=== PATIENT | male | born 1945 | race Caucasian/White ===

== ENCOUNTER 2018-02-10 12:49 | Inpatient (IN) | payer OTHER ==
[~2018-02-10] VITALS: Ht 190.5 cm; Wt 122.0 kg
--- NOTE | ~2018-02-10 | PATH ---
[facility] [place] [address] PATHOLOGY RPT PROCEDURE Name: CLIFTON GRAY Room #: 421-P DIS IN M.R.#: [id number] Admission: 02/10/18 Date of : 45 Discharge: 02/13/18 Report #: [id number] Path Case #: [id number] LCA Accession Number: [id number] . 01 Material submitted: . BX GASTRITIS . 01 Clinical history: . Pre-OP DX: GI bleed Post-OP DX: Gastritis . 02 Diagnosis: Gastric biopsy, "biopsy gastritis": - Mild chronic reactive gastropathy with mild chronic inflammation. - There is no evidence of atypia or malignancy. - The immunoperoxidase stain for Helicobacter pylori is negative. (SHA:; 02/13/18) QRQ/02/13/2018 . 02 Electronically signed: . Cirilo Meyers MD, Pathologist NPI- [id number] . 01 Gross description: . Received in formalin labeled "Surinder, Clifton, BX gastritis," are 4 segments of almonte soft tissue measuring 0.8 x 0.7 x 0.2 cm in aggregate dimensions and ranging from 0.3 to 0.4 cm in maximum dimension. The specimen is submitted entirely in cassette A1. (TSD; 02/11/2018) /TOB . 02 Pathologist provided ICD-10: K31.9, K29.50 . 02 CPT . 389970, C06768 Performed at: [address], [place] [id number] MD Ed Colvin MD Phone: [phone] Performed at: [address] [id number] MD Radha Aleman MD Phone: [phone]
--- NOTE | ~2018-02-10 | D ---
[facility] [place] [address] [place] [address] DISCHARGE SUMMARY Name: OVIDIO GRAY Room #: 421-P [facility] IN ..#: [id number] Admission: 02/10/18 Attend Phys: Jayesh Nuno Discharge: 02/13/18 Date of : 45 Report #: [id number] THIS REPORT FOR: //name// CC: Ashish Pascual FINAL DIAGNOSES: 1. Upper gastrointestinal bleed. 2. Anemia due to gastrointestinal loss. 3. Colonic polyp. 4. Internal hemorrhoids. 5. Gastritis. 6. Diabetes type 2. 7. Hypertension. PROCEDURES: 1. EGD. 2. Colonoscopy. 3. Two-unit blood transfusion. HOSPITAL COURSE: The patient was admitted with a syncopal episode, likely related to a GI bleed. He was hemodynamically stable during his admission, lab work was followed. His hemoglobin decreased from 9.2-7.2 and he received 2 units of blood. EGD was performed. This showed some white scarred or old based nonbleeding gastric ulcers 2 areas and gastritis. A colonoscopy was performed again with no bleeding. A colon polyp was biopsied, internal hemorrhoids that were nonbleeding. Dr. Cooper recommended an outpatient capsule study of the small intestine. He had no other interval complication. PHYSICAL EXAMINATION: GENERAL: On the day of discharge, he was awake and alert with stable vital signs and no further presyncope type symptoms. LUNGS: Clear. HEART: Regular. ABDOMEN: Soft, normoactive bowel sounds. EXTREMITIES: No edema. DISPOSITION: He will be discharged to home with diabetic diet, activity as tolerated, resume all medications with exception of potassium and Maxzide. Avoid aspirin and NSAIDs. He will have Protonix 40 mg twice a day for a month. Follow up with Dr. Pascual and Dr. Cooper in 1 week. <ELECTRONICALLY SIGNED> By: Jarrell Fry MD 02/14/18 [phone] Jarrell Fry MD /nt
--- NOTE | ~2018-02-10 | P ---
[facility] [place] [address] PROCEDURE REPORT Name: OVIDIO GRAY Room #: 421-P [facility] IN ..#: [id number] Admission: 02/10/18 Attend Phys: Jayesh Nuno Discharge: 02/13/18 Date of : 45 Report #: [id number] THIS REPORT FOR: //name// CC: Gregory Pascual DATE OF SERVICE: 02/12/2018 PROCEDURE PERFORMED: Colonoscopy with polypectomy. HISTORY OF PRESENT ILLNESS: The patient is a 72-year-old male with a near syncopal episode recently, had a drop in his hemoglobin from 9.1 on admission down to 7.6 today. EGD was performed yesterday as the patient had been having dark stools, small 2 antral ulcers were noted. No evidence of bleeding, otherwise normal. Plan is for colonoscopy. The patient has never had a previous colonoscopy. DESCRIPTION OF PROCEDURE: The risks and benefits of the procedure were explained to the patient, those risks including but not limited to bleeding, perforation, the risk of sedation. He understood these risks and gave informed consent. Sedation was given using propofol per Anesthesia. Next, a digital rectal exam was performed in which a firmness was noted at the 6 o'clock position. Close examination shows evidence of a chronic anal fissure, no evidence of bleeding. Next, using a standard Olympus colonoscope, the scope was placed in the patient's anus and advanced under direct vision to the cecum. The overall prep was good in most areas. Multiple washings and aspirations were performed. There was old dark appearing stools. No evidence of bright red blood throughout the colon. The cecum and ileocecal valve were normal in appearance. In the proximal ascending colon, an 8 mm sessile polyp was noted. This was removed by snare cautery, otherwise normal. The transverse and descending colon were normal. Scattered diverticula were noted in the sigmoid colon, no evidence of inflammation or active bleeding. The rectal mucosa was normal. On retroflexion, small nonbleeding internal hemorrhoids were noted. Close examination of the anal canal showed a chronic appearing anal fissure at the 6 o'clock position. No bleeding. The scope was then withdrawn and the procedure terminated. The patient tolerated the procedure well. IMPRESSION: 1. Colonic polyp. 2. Sigmoid diverticulosis. 3. Internal hemorrhoids. 4. Anal fissure at 6 o'clock position. RECOMMENDATIONS: Etiology of the patient's anemia is unclear. There was no active bleeding on colonoscopy today. There was evidence of some old dark stool. His hemoglobin has drifted down to 7.6. We will plan on repeating [address] [address] PROCEDURE REPORT Name: OVIDIO GRAY Room #: 421-P [facility] IN M.R.#: [id number] Admission: 02/10/18 Attend Phys: Jayesh Nuno Discharge: 02/13/18 Date of : 45 Report #: [id number] hemoglobin this afternoon, may need to consider transfusion. May also need to consider an M2 capsule in the near future as an outpatient. Thank you for allowing me to participate in his care. <ELECTRONICALLY SIGNED> By: Demario Cooper MD 02/14/18 0830 1221 1506 Demario Cooper MD /nt
--- NOTE | ~2018-02-10 | EKG ---
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 : 1945 Requested By: Yaritza Dewitt Order Number: [id number] MD: Tanner Lomeli Measurements Intervals [place] Rate: 108 P: -25 WV: 174 QRS: -11 QRSD: 148 T: -28 QT: 375 QTc: 503 Interpretive Statements Sinus rhythm with frequent atrial premature complexes Right bundle branch block Leftward axis No previous ECGs available for comparison Electronically Signed On 02-10-2018 17:15:02 CDT by Tanner Lomeli [email or web address] <ELECTRONICALLY SIGNED> By: Tanner Lomeli MD, [facility] 02/10/18 1715 1253 1253 Tanner Lomeli MD, [facility] /EPI
--- NOTE | ~2018-02-10 | H ---
[facility] [place] [address] HISTORY AND PHYSICAL Name: OVIDIO GRAY Room #: 421-P [facility] IN .R.#: [id number] Admission: 02/10/18 Attend Phys: Jayesh Nuno Discharge: Date of : 45 Report #: [id number] THIS REPORT FOR: //name// CC: Ashish Pascual DATE OF SERVICE: 02/10/2018 CHIEF COMPLAINT: Dark stools and syncope. HISTORY OF PRESENT ILLNESS: The patient is a 72-year-old gentleman, sent to the Emergency Room after a syncopal episode earlier this morning. He said in recent days, he has had some dark tarry stools for about 3 days. This morning, he was at his dentist's office and then began to feel lightheaded as he left. He was driving and running some errands and stopping by our office to meet a friend when he had a passing out spell. He denies any nausea, vomiting, abdominal pain or bright red blood. He denies any chronic use of aspirin or nonsteroidals. PAST MEDICAL HISTORY: Hypertension, diabetes type 2, has a history of alcohol use in the past. He says he stopped in the 1980s. PAST SURGICAL HISTORY: Hydrocele, bladder tumor treatment several times, some orthopedic fractures. FAMILY HISTORY: Noncontributory. SOCIAL HISTORY: No chronic alcohol or tobacco use currently. ALLERGIES: None. MEDICATIONS: Metformin, potassium, allopurinol, Amaryl, Zestril, Norvasc, pravastatin, Levemir, Maxzide. REVIEW OF SYSTEMS: He denies headache, chest pain, shortness of breath, abdominal pain, nausea, vomiting, diarrhea, constipation, dysuria, syncope. OBJECTIVE: VITAL SIGNS: Temperature 36.9, pulse 103, respirations 18, blood pressure 129/76, O2 sat 97% on room air. GENERAL: He is awake and alert, in no distress. LUNGS: Clear. HEART: Regular. ABDOMEN: Soft, obese, normoactive bowel sounds. No rebound or guarding. EXTREMITIES: No cyanosis, clubbing or edema. NEUROLOGIC: Motor strength 5/5 throughout. LABORATORY DATA: Hemoglobin is 8.4, down from 9.1 on admission. MCV was [address] [address] HISTORY AND PHYSICAL Name: OVIDIO GRAY Room #: 421-[facility] IN [facility]#: [id number] Admission: 02/10/18 Attend Phys: Jayesh Nuno Discharge: Date of : 45 Report #: [id number] normal. Chemistry is unremarkable. Blood sugars are in the 200s. ASSESSMENT: 1. Syncopal episode, suspected due to gastrointestinal blood loss. 2. Gastrointestinal bleed, possible upper source. 3. Diabetes type 2. 4. Hypertension. PLAN: GI Service has assessed him today and plans on EGD. We will await those results. In the meantime, continue his usual medications from home. <ELECTRONICALLY SIGNED> By: Jarrell Fry MD 02/11/18 1313 1002 1026 Jarrell Fry MD /nt
--- NOTE | ~2018-02-10 | PATH ---
[facility] [place] [address] PATHOLOGY RPT PROCEDURE Name: CLIFTON GRAY Chanell Room #: 421-P [facility] IN M.R.#: [id number] Admission: 02/10/18 Date of : 45 Discharge: 02/13/18 Report #: [id number] Path Case #: [id number] LCA Accession Number: [id number] . 01 Material submitted: . POLYP ASCENDING COLON . 01 Clinical history: . GI bleed Colon polyp, diverticulosis . 02 Diagnosis: Colonic mucosa, "polyp ascending colon": - Fragments of tubular adenoma. - There is no evidence of high-grade dysplasia or malignancy. (SHA:siria; 02/14/2018) QMS/02/14/2018 . 02 Electronically signed: . Cirilo Meyers MD, Pathologist NPI- [id number] . 01 Gross description: . The specimen is received in formalin, labeled "Surinder, Clifton, polyp ascending colon" and consists of a polypoid segment of almonte soft tissue measuring 0.8 x 0.5 x 0.3 cm. It is inked and entirely submitted in A1. (SDY; 02/13/2018) SYU/SYU . 02 Pathologist provided ICD-10: D12.2 . 02 CPT . 502637 Performed at: [address], [place], [place] [id number] MD Ed Colvin MD Phone: [phone] Performed at: [address] [id number] MD Radha Aleman MD Phone: [phone]
--- NOTE | ~2018-02-10 | P ---
[facility] [place] [address] PROCEDURE REPORT Name: OVIDIO GRAY Room #: 421-P [facility] IN ..#: [id number] Admission: 02/10/18 Attend Phys: Jayesh Nuno Discharge: 02/13/18 Date of : 45 Report #: [id number] THIS REPORT FOR: //name// CC: Gregory Pascual DATE OF SERVICE: 02/11/2018 PROCEDURE PERFORMED: Upper endoscopy with biopsies. HISTORY OF PRESENT ILLNESS: The patient is a 72-year-old male with recent near syncopal episode. He does report some intermittent abdominal pain, was noted to have a hemoglobin of 9.1 on admission. No previous history of endoscopy. He had been having dark stools. He was not taking any NSAIDs. The patient's hemoglobin today is 8.4. Plan is for EGD. PPI therapy has been started. DESCRIPTION OF PROCEDURE: The risks and benefits of the procedure were explained to the patient, those risks including but not limited to bleeding, perforation, the risk of sedation. He understood these risks and gave informed consent. Sedation was given using propofol per anesthesia. Next, using a standard Olympus upper endoscope, the scope was placed in the patient's mouth and advanced under direct vision through the esophagus, stomach and into the second portion of the duodenum. The larynx was normal in appearance. The esophagus was normal throughout. The GE junction was normal. Overall, the gastric mucosa was normal in the fundus and body. In the gastric antrum, mild gastritis was noted. Two small 3-4 mm clean white based ulcers were near the angularis. No evidence of bleeding, no visible vessel. The pylorus was normal and patent. The duodenal bulb, first and second portion were normal. No evidence of blood throughout the exam today. Gastric biopsies were obtained to rule out H. pylori. The scope was then withdrawn and the procedure terminated. The patient tolerated the procedure well. IMPRESSION: 1. Gastritis with 2 small ulcerations in the gastric antrum. No evidence of bleeding. 2. Otherwise, normal upper endoscopy. RECOMMENDATIONS: 1. Await biopsy results. 2. Continue PPI therapy. 3. Continue to monitor hemoglobin. 4. I will discuss options with the patient. He needs a colonoscopy, could potentially proceed with prep and colonoscopy tomorrow versus doing this in the near future as an outpatient. We will discuss more with the patient today. [address] [address] PROCEDURE REPORT Name: OVIDIO GRAY Room #: 421-P [facility] IN .R.#: [id number] Admission: 02/10/18 Attend Phys: Jayesh Nuno Discharge: 02/13/18 Date of : 45 Report #: [id number] Thank you for allowing me to participate in his care. <ELECTRONICALLY SIGNED> By: Demario Cooper MD 02/14/18 0830 1458 10 Demario Cooper MD /marilee
[~2018-02-10 12:49] MED LIST: ALLOPURINOL 30300 M2 PO; AMARYL4 MG PO; AMLODIPINE BESY10 MG PO; BACTRIM DS TAB1 EACH PO; BACTROBAN CREAM30 G1 TOP; GLUCOPHAGE1000 MG PO; KETOCONAZOLE15 GM TOP; LANTUS SUBQ; LISINOPRIL40 MG PO; POTASSIUM20 PO; PRAVASTATIN SOD20 MG PO; REFRESH P.M. O3.5 G2 OPHTHALMIC; TRIAMTERENE-HC1 EAC1 PO
[2018-02-10 12:51] VITALS: BP 121/82
[2018-02-10 13:22] LABS: ABSOLUTE NEUTROPHILS 10.4 thou/uL (1.4-8.2); BASOPHILS 0.5 % (0.0-2.0); EOSINOPHILS 0.7 % (0.0-3.0); HEMATOCRIT 26.3 % (42.0-52.0); HEMOGLOBIN 9.1 gm/dL (14.0-18.0); LYMPHOCYTES 12.8 % (24.0-44.0); MCH 29.9 pg (26.0-34.0); MCHC 34.8 g/dL (28.0-37.0); MONOCYTES 4.4 % (1.0-8.0); PLATELET COUNT 214 thou/uL (150-400); POLYS 81.6 % (36.0-66.0); RBC 3.05 mil/uL (4.50-6.00); WBC 12.8 thou/uL (4.0-11.0)
[2018-02-10 13:33] LABS: ANION GAP 9 mmol/L (7-16); BUN 29 mg/dL (7-18); CALCIUM 8.8 mg/dL (8.5-10.1); CHLORIDE 105 mmol/L (98-107); CO2 22 mmol/L (21-32); CREATININE 1.2 mg/dL (0.7-1.3); GLUCOSE 264 mg/dL (74-106); SODIUM 136 mmol/L (136-145)
[2018-02-10 13:37] LABS: APTT 22.2 Seconds (24.5-32.8); PROTIME 10.6 Seconds (9.3-11.4)
[2018-02-10 13:41] LABS: TROPONIN-I <0.06 ng/mL (<0.06)
[2018-02-10 14:52] VITALS: BP 124/82
[2018-02-10] MEDS ORDERED: MAXZIDE-25 MG1 EACH PO (15:05)
[2018-02-10] MEDS ORDERED: LEVEMIR FL100 UNIT/2 SUBQ (15:05)
[2018-02-10 15:59] VITALS: BP 124/82
[2018-02-10 16:10] VITALS: BP 139/89
[2018-02-10 20:45] VITALS: BP 139/82
[2018-02-11 04:00] VITALS: BP 129/76
[2018-02-11 05:45] LABS: HEMATOCRIT 22.9 % (42.0-52.0); HEMOGLOBIN 8.4 gm/dL (14.0-18.0); MCH 31.1 pg (26.0-34.0); MCHC 36.8 g/dL (28.0-37.0); MCV 84.5 fL (80.0-100.0); RBC 2.71 mil/uL (4.50-6.00); RDW 15.6 % (10.5-14.5); WBC 9.1 thou/uL (4.0-11.0)
[2018-02-11 06:04] LABS: ALBUMIN 2.9 g/dL (3.4-5.0); DIRECT BILIRUBIN 0.1 mg/dL (<0.1-0.3); TOTAL BILIRUBIN 0.4 mg/dL (<0.1-1.0); TOTAL PROTEIN 5.7 g/dL (6.4-8.2)
[2018-02-11 15:28] VITALS: BP 151/74
[2018-02-11 20:00] VITALS: BP 147/82
[2018-02-12 03:41] VITALS: BP 149/76
[2018-02-12 06:02] LABS: HEMATOCRIT 21.2 % (42.0-52.0); HEMOGLOBIN 7.6 gm/dL (14.0-18.0)
[2018-02-12 06:06] LABS: CALCIUM 8.3 mg/dL (8.5-10.1); CREATININE 1.1 mg/dL (0.7-1.3); POTASSIUM 3.6 mmol/L (3.5-5.1)
[2018-02-12 08:00] VITALS: BP 138/73
[2018-02-12 15:29] VITALS: BP 136/87; BP 142/94
[2018-02-12 16:00] VITALS: BP 139/83
[2018-02-12 19:25] VITALS: BP 142/94
[2018-02-12 19:59] VITALS: BP 140/89; BP 142/88; BP 144/90
[2018-02-13 01:43] LABS: HEMATOCRIT 22.6 % (42.0-52.0); HEMOGLOBIN 8.2 gm/dL (14.0-18.0); MCH 30.5 pg (26.0-34.0); MCHC 36.1 g/dL (28.0-37.0); MCV 84.4 fL (80.0-100.0); RBC 2.68 mil/uL (4.50-6.00); WBC 9.4 thou/uL (4.0-11.0)
[2018-02-13 01:53] LABS: CALCIUM 8.1 mg/dL (8.5-10.1); POTASSIUM 3.8 mmol/L (3.5-5.1)
[2018-02-13 02:44] VITALS: BP 138/98
[2018-02-13] MEDS ORDERED: PROTONIX40 M1 PO (08:40)
[2018-02-13 12:25] VITALS: BP 138/98
== END 2018-02-13 16:00 | disposition home or self-care (01) | DRG 378 ==
LOC: ER 12:49 → 4E 14:18 → EROBS 14:18 → 4E 16:24 → ENTRNSPT 02-13 15:47 → EDTRNSPTSTS 02-13 15:49 → 4E 02-13 16:00
PROVIDERS: Emergency Medicine; Internal Medicine Geriatric Medicine; Nurse Practitioner
PROC: 0DB68ZX Excision of Stomach, Via Natural or Artificial Opening Endoscopic, Diagnostic (ICD-10-PCS; principal; 2018-02-11)
PROC: 0DBK8ZZ Excision of Ascending Colon, Via Natural or Artificial Opening Endoscopic (ICD-10-PCS; 2018-02-12)
PROC: 30233N1 Transfusion of Nonautologous Red Blood Cells into Peripheral Vein, Percutaneous Approach (ICD-10-PCS; 2018-02-12)
DX: K57.31 Diverticulosis of large intestine without perforation or abscess with bleeding (principal); E44.1 Mild protein-calorie malnutrition; I10 Essential (primary) hypertension; E11.9 Type 2 diabetes mellitus without complications; M10.9 Gout, unspecified; D64.9 Anemia, unspecified; K63.5 Polyp of colon; K64.8 Other hemorrhoids; K29.71 Gastritis, unspecified, with bleeding; E78.5 Hyperlipidemia, unspecified; E66.9 Obesity, unspecified; K25.9 Gastric ulcer, unspecified as acute or chronic, without hemorrhage or perforation; Z79.899 Other long term (current) drug therapy; Z87.891 Personal history of nicotine dependence; Z68.33 Body mass index [BMI] 33.0-33.9, adult
CPT/HCPCS: 10183; 62110; 62900; 70005

== ENCOUNTER 2020-05-01 07:56 | Inpatient (IN) | payer OTHER ==
[~2020-05-01] VITALS: Ht 190.5 cm; Wt 120.2 kg
[~2020-05-01 07:56] MED LIST changes: +LEVEMIR FL100 UNIT/2 SUBQ; +MAXZIDE-25 MG1 EACH PO; +PROTONIX40 M1 PO
[2020-05-01 08:02] VITALS: BP 169/94
[2020-05-01 09:13] LABS: ABSOLUTE NEUTROPHILS 14.7 thou/uL (1.4-8.2); BASOPHILS 0.6 % (0.0-2.0); EOSINOPHILS 0.2 % (0.0-3.0); HEMATOCRIT 44.1 % (42.0-52.0); HEMOGLOBIN 14.9 gm/dL (14.0-18.0); LYMPHOCYTES 8.9 % (24.0-44.0); MCHC 33.8 g/dL (28.0-37.0); MCV 85.9 fL (80.0-100.0); MONOCYTES 7.7 % (1.0-8.0); PLATELET COUNT 206 thou/uL (150-400); POLYS 82.6 % (36.0-66.0); RBC 5.14 mil/uL (4.50-6.00); WBC 17.8 thou/uL (4.0-11.0)
[2020-05-01 09:19] LABS: CALCIUM 9.4 mg/dL (8.5-10.1); CREATININE 1.3 mg/dL (0.7-1.3); POTASSIUM 3.6 mmol/L (3.5-5.1)
[2020-05-01 09:47] VITALS: BP 169/94
[2020-05-01] MEDS ORDERED: TRULICITY0.75 MG/0. SUBQ (09:58)
[2020-05-01] MEDS ORDERED: TRIAMTERENE/HCT1 CA1 PO (09:59)
[2020-05-01] MEDS ORDERED: POTASSIUM600 MG PO (10:01)
[2020-05-01] MEDS ORDERED: K-DUR 20 MEQ T20 MEQ PO (10:02)
--- NOTE | 2020-05-01 10:04 | NUR ---
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
[2020-05-01 10:49] VITALS: BP 153/89
[2020-05-01 15:10] VITALS: BP 170/69
[2020-05-01 19:40] VITALS: BP 166/101
--- NOTE | 2020-05-01 20:05 | HC ---
[facility] [place] [address] CONSULTATION Name: OVIDIO GRAY Room #: 450-P [facility] IN .R.#: [id number] Admission: 05/01/20 Attend Phys: Ishmael Arroyo Discharge: Date of : 45 Report #: [id number] THIS REPORT FOR: cc: Ashish Pascual MD,Heron Jacobs MD, MD ~ CC: Ashish Arroyo WOUND CARE CONSULTATION REASON FOR CONSULTATION: Cellulitis of right hand with open wound of right fifth ____ finger. HISTORY OF PRESENT ILLNESS:. The patient is a 74-year-old gentleman with diabetes mellitus type 2. Quit drinking alcohol in 1982. began to notice some redness of his hand and the right fifth finger on Saturday 48 hours ago. This became more red and inflamed. He may have had a blistered wound of the right fifth finger, which he opened last night. He is currently admitted and on IV antibiotics, vancomycin and Zosyn. Wound cultures have been done. The patient has very little pain in the hand. He has peripheral neuropathy. Wound care is consulted for cellulitis of his hand with open wound of the right fifth finger. PAST MEDICAL HISTORY: Parry's palsy, history of diabetic foot infection, history of diverticulitis, history of gastrointestinal bleeding. SOCIAL HISTORY: Previous alcohol drinker, quit in 1982. ALLERGIES: No known drug allergies. LABORATORY DATA: White blood count 17.8. IMAGING: X-ray of right hand, no abnormalities. MEDICATIONS: Metformin, Zyloprim, Amaryl, Zestril, amlodipine, pravastatin, Levemir insulin. PAST SURGICAL HISTORY: Umbilical hernia repair, radial fracture of right arm and repair, bladder tumor removed in 2007 and 2009. PHYSICAL EXAMINATION: GENERAL: Shows a well-appearing elderly gentleman who is alert, a good historian. HEENT: Mucous membranes are moist. NECK: Supple. LUNGS: Respirations unlabored. HEART: Shows regular rate and rhythm. [facility] [address] [place] [address] CONSULTATION Name: OVIDIO GRAY Room #: [address] [place] [address] IN ..#: [id number] Admission: 05/01/20 Attend Phys: Ishmael Arroyo Discharge: Date of : 45 Report #: [id number] ABDOMEN: Soft. EXTREMITIES: Normal. Examination of the patient's right hand shows cellulitis of the right hand extending to the wrist and slightly above. There is an open wound of the medial aspect of the right fifth finger. Hand is quite swollen, particularly in the region of the fifth finger. The patient has minimal tenderness. He is able to flex the fingers. IMPRESSION: Cellulitis of right hand with open wound of right fifth finger in a patient with diabetes mellitus type 2 and peripheral neuropathy. Wound cultures are pending. PLAN: Order topical gentamicin 0.1% ointment daily, cover with Xeroform. Continue antibiotics, vancomycin and Zosyn. Keep hand elevated. Wound team may consider consulting hand surgeon if condition worsens. Wound care team will follow. <ELECTRONICALLY SIGNED> By: Heron Shrestha MD 05/01/202004 1415 1550 Heron Shrestha MD /nt
--- NOTE | 2020-05-01 20:27 | NUR ---
ASSUMED PT CARE UPON ADMIT. PT VITAL SIGNS STABLE. PATIENT A&OX4, COOPERATIVE. CALLS WHEN ASSISTANCE NEEDED. PT ON TELE, PT SHOWED BBB, WOULD GO TACHYCARDIC, A FIB, INFORMED MD. PT ASYMPTOMATIC REGARDING INCREASED HEART RATE. IV PATENT, REPORTED NO PAIN. BLOOD SUGAR TAKEN CARE OF WITH INSULIN. PICTURES OF WOUND TAKEN, WOUND DRESSED. ENDORSED TO NIGHT NURSE.
[2020-05-02 00:03] VITALS: BP 146/102
--- NOTE | 2020-05-02 03:33 | NUR ---
ASSUMED PT CARE AROUND 1930. AXOX4. CALLS FOR HELP. R HAND WARAPPED AT THIS TIME NO DISCHARGE ON DRESSING. NO S/S ACUTE DISTRESS NOTED OR REPORTED AT THIS TIME. WILL CONT TO MONITOR FOR ANY CHANGES IN CONDITION.
[2020-05-02 04:51] VITALS: BP 143/107; BP 172/111
[2020-05-02 05:45] LABS: HEMATOCRIT 40.4 % (42.0-52.0); HEMOGLOBIN 13.6 gm/dL (14.0-18.0); MCH 29.1 pg (26.0-34.0); MCHC 33.8 g/dL (28.0-37.0); MCV 86.1 fL (80.0-100.0); RBC 4.69 mil/uL (4.50-6.00); RDW 14.8 % (10.5-14.5); WBC 11.2 thou/uL (4.0-11.0)
[2020-05-02 08:00] VITALS: BP 177/121
--- NOTE | 2020-05-02 12:11 | EKG ---
[facility] [address] [place] [address] ELECTROCARDIOGRAM REPORT Name: OVIDIO GRAY Room #: 450-P ADM IN M.R.#: [id number] Admission: 05/01/20 Attend Phys: Ishmael Arroyo Discharge: Date of : 45 Report #: [id number] THIS REPORT FOR: cc: Ashish Pascual MD, Christopher B. MD Lammoglia, Francisco J. 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: Jayesh GARRETT : 1945 Requested By: Niya Veliz Order Number: [id number] MD: Subhash Sevilla Measurements Intervals [place] Rate: 101 P: CT: QRS: -78 QRSD: 158 T: -39 QT: 430 QTc: 558 Interpretive Statements Atrial fibrillation Ventricular premature complex or possible Kerwin beat Right bundle branch block Baseline wander in lead(s) II,III,aVR,aVL,aVF,V5,V6 Compared to ECG 02/10/2018 12:53:12 Ventricular premature complex(es) now present Low atrial rhythm no longer present Electronically Signed On 05-02-2020 12:11:16 CDT by Subhash Sevilla [email or web address] <ELECTRONICALLY SIGNED> By: Subhash Sevilla MD 05/02/20 1211 0 0 Subhash Sevilla MD /EPI
--- NOTE | 2020-05-02 14:16 | NUR ---
PT ADMITTED RELATED TO INFECTION IN FINGER. CM REVIEWED CHART AND SPOKE WITH CARE TEAM. CM CALLED AND SPOKE WITH PT AT BEDSIDE THIS DAY. PT APPEARED TO BE A&O X4. CM ROLE INTRODUCED. PT INDICATED HE LIVES IN A HOUSE WITH 3 UNRELATED MALES. HE INDICATED 1 STEP TO ENTER AND NO STEPS INSIDE. 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 PT INDICATED NO HH HX. PT IS RECEPTIVE TO SERVICES SHOULD HE NEED THEM UPON DC. PHYSICAIN WANTING TO SEE I MEDICARE WILL COVER TOR [place] FOR BS CHECKING UPON DC. CM FAXED SCRIPT TO PT'S INSURANCE BUT IT NEEDS PRIOR AUTH. CM TO CALL FOR PRIOR AUTH. CM TO FOLLOW INDICATED WITH DC PLANNING. PT IS ON IV VANC/ZOSYN ORTHO CONSULTED AND PT TO HAVE MRI THIS DAY.
[2020-05-02 15:00] VITALS: BP 161/98
--- NOTE | 2020-05-02 15:33 | 2DMMODE ---
[address] [address] D/M-MODE ECHOCARDIOGRAM Name: OVIDIO GRAY Room #: 450-P ADM IN M.R.#: [id number] Admission: 05/01/20 Attend Phys: Ishamel Hernandez Namratabrian Discharge: Date of : 45 Report #: [id number] THIS REPORT FOR: cc: Ashish Pascual MD, Christopher B. MD Lundgren, Craig H. MD [facility] ~ APPROVED REPORT Study performed: 05/02/2020 13:45:15 EXAM: Comprehensive 2D, Doppler, and color-flow Echocardiogram Patient Location: Bedside Room #: [facility] Status: routine BSA: 2.47 HR: 96 bpm BP: 154/108 mmHg Rhythm: Atrial Fibrillation Other Information Study Quality: Adequate Indications Diabetes Atrial Fibrillation Hypertension/HDD 2D Dimensions IVC: 29.00 mm Volumes Left Atrial Volume (Systole) LA ESV Index: 34.00 mL/m2 Tricuspid Valve PA Pressure: 35.00 mmHg Left Ventricle Left ventricle is at the upper limits of normal. There is normal LV segmental wall motion. Mild concentric left ventricular hypertrophy. The left ventricular systolic function is normal. The left ventricular ejection fraction is within the normal range. LVEF is 55-60%. This study is not technically sufficient to allow evaluation of the LV diastolic function due to atrial fibrillation. [address] [place] [address] 2 D/M-MODE ECHOCARDIOGRAM Name: OVIDIO GRAY Room #: 450-P ADM IN M.R.#: [id number] Admission: 05/01/20 Attend Phys: Ishmael Ott Discharge: Date of : 45 Report #: [id number] Right Ventricle The right ventricle is normal size. The right ventricular systolic function is normal. Atria Left atrium is dilated. Lipomatous hypertrophy Right atrium is dilated. Aortic Valve The aortic valve is normal in structure. No aortic regurgitation is present. There is no aortic valvular stenosis. Mitral Valve The mitral valve is normal in structure. Mild mitral regurgitation. No evidence of mitral valve stenosis. Tricuspid Valve The tricuspid valve is normal in structure. There is trace to mild tricuspid regurgitation. Estimated PAP 35 mmHg. There is mild pulmonary hypertension. Pulmonic Valve The pulmonary valve is normal in structure. There is no pulmonic valvular regurgitation. Great Vessels The aortic root is normal in size. IVC is dilated and collapses <50% with inspiration. Pericardium There is no pericardial effusion. <Conclusion> The left ventricular systolic function is normal. There is normal LV segmental wall motion. LVEF is 55-60%. Both atria are dilated. The aortic valve is normal in structure. No aortic regurgitation or stenosis The mitral valve is normal in structure. Mild mitral regurgitation. There is trace to mild tricuspid regurgitation. Estimated pulmonary [facility] [address] [place] [address] 2 D/M-MODE ECHOCARDIOGRAM Name: OVIDIO GRAY Room #: 450-P ADM IN M.R.#: [id number] Admission: 05/01/20 Attend Phys: Ishmael Ott Discharge: Date of : 45 Report #: [id number] artery pressure of 35 mmHg. There is no pericardial effusion. <ELECTRONICALLY SIGNED> By: Tanner Lomeli MD, FACC 05/02/203 32 32 Tanner Lomeli MD, FACC /INF
--- NOTE | 2020-05-02 18:32 | NUR ---
PT A&OX4, VSS, DENIES PAIN. PATIENT SEEN BY CARDIOLOGY FOR AFIB. PATIENT DRESSING CHANGE DONE BY PHYSICIAN. MRI MACHINE BROKE TODAY AND PATIENT WILL GET IT IN THE AM 05/03. FAMILY AT BEDSIDE. NO SIGNS OF DISTRESS. WILL CONTINUE TO MONITOR.
[2020-05-02 19:07] VITALS: BP 156/103
--- NOTE | 2020-05-03 05:25 | NUR ---
ASSUMED PT CARE AROUND 193. AXOX4. CALLS FOR HELP. R HAND DRESSING CHANGED PRN PER MD ORDER. VANCO TROUGH REPORTED TO PHARM D AND NO CHANGE PER PHARMACY. NO S/S ACUTE DISTRESS NOTED OR REPORTED AT THIS TIIME. WILL CONT TO MONITOR FOR ANY CHANGES IN CONDITION.
--- NOTE | 2020-05-03 07:40 | EKG ---
[facility] [place] [address] ELECTROCARDIOGRAM REPORT Name: MARINAOVIDIO HALEY Room #: 450-P ADM IN M.R.#: [id number] Admission: 05/01/20 Attend Phys: Ishmael Arroyo Discharge: Date of : 45 Report #: [id number] THIS REPORT FOR: cc: Ashish Pascual MD, Christopher B. 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
--- NOTE | 2020-05-03 08:14 | HC ---
[facility] [place] [address] CONSULTATION Name: OVIDIO GRAY Room #: 450-P ADM IN .R.#: [id number] Admission: 05/01/20 Attend Phys: Ishmael Arroyo Discharge: Date of : 45 Report #: [id number] THIS REPORT FOR: cc: Ashish Pascual MD,Jarrell Cabrera MD, MD ~ CC: Ashish Arroyo DATE OF SERVICE: 05/02/2020 CHIEF COMPLAINT: Right hand infection. HISTORY OF PRESENT ILLNESS: This 74-year-old gentleman states he developed right hand pain and swelling gradually over the past several days. He is uncertain if there was any accident or injury. He was admitted with obvious cellulitis involving the right hand, principally over the fifth finger and extending up on to the hand and distal forearm. He has had x-rays and CT scan, which revealed no evidence of fracture and no clear evidence of a fluid collection, abscess or osteonecrosis. An MRI scan of the hand has been ordered, but is still pending at the time of this dictation. At the time of my evaluation, he is alert and oriented. He notes his hand seems to be slightly better over the past 24 hours since he has been here and on IV antibiotics. He denies any other areas of infection or injury and does not recall any specific injuries to the right hand. He thinks this may have started with an infection around the nail bed some days ago. The right hand reveals obvious infection with diffuse cellulitis about the right fifth finger extending over the dorsum of the hand and just slightly proximally to the wrist. I do not feel any areas of fluctuance or fluid collection or abscess. He does have satisfactory movement of the fifth digit. There is some soft tissue sloughing consistent with a significant soft tissue involvement about the digit; however, the tip of the finger still appears to be viable and there is no obvious skin necrosis. There is much less significant involvement extending to the fourth digit and up on to the hand. CT scan reveals no evidence of osteonecrosis, fluid collection or abscess. I have discussed with the patient the options for surgical debridement. At this point, however, there does not seem to be a fluid collection or abscess nor any areas of osteomyelitis, which would require debridement. I think he is at risk for further infection, possibly loss of the fifth digit; however, it appears that things have possibly stabilized and actually even improving a bit over the past 24 hours. Given this, I think he should continue with his current antibiotic regimen with rest, elevation of the hand. We are awaiting an MRI [address] [address] CONSULTATION Name: OVIDIO GRAY Room #: 450-P [facility] IN M.R.#: [id number] Admission: 05/01/20 Attend Phys: Ishmael Arroyo Discharge: Date of : 45 Report #: [id number] study to confirm if there are any other areas which might require surgical debridement. I will continue to follow, but at this point, would not anticipate that surgery will be necessary. <ELECTRONICALLY SIGNED> By: Jarrell Yung MD 05/03/20 0814 1227 [id number] Jarrell Yung MD /nt
[2020-05-03] MEDS ORDERED: CARDIZEM CD120 MG PO (09:13)
[2020-05-03] MEDS ORDERED: BENICAR40 MG PO (09:13)
[2020-05-03] MEDS ORDERED: XARELTO20 MG PO (09:15)
[2020-05-03 09:58] VITALS: BP 159/102
[2020-05-03 15:38] VITALS: BP 146/109
--- NOTE | 2020-05-03 17:07 | NUR ---
PT A&OX4, VSS, DENIES PAIN. DRESSING CHANGED, NEW IV PLACED UPPER LEFT ARM. MRI COMPLETED TODAY. NO SIGNS OF DISTRESS. WILL CONTINUE TO MONITOR.
[2020-05-03 20:32] VITALS: BP 147/108
--- NOTE | 2020-05-04 03:22 | NUR ---
ASSUMED PT CARE AT 1915. PT IS A&OX4. PT'S IV IS PATENT IN HIS UPPER LEFT ARM. PT DENIES ANY PAIN. PT IS ON ROOM AIR. PT CALLS OUT APPROPRIATELY WHEN HE NEEDS TO USE THE RESTROOM. PT IS STEADY ON HIS FEET. PT STATES THAT HE DOES NOT WANT HIS IV IN. I EXPLAINED TO HIM THAT UNTIL HE WAS DISCHARGED THAT HE WOULD HAVE TO KEEP THE IV IN. PT IS IN A PLEASANT MOOD. PT IS SLEEPING IN HIS ROOM. WILL CONTINUE TO MONITOR.
[2020-05-04 05:28] VITALS: BP 152/100
--- NOTE | 2020-05-04 13:41 | NUR ---
CARE TEAM INDICATED THAT PT MAY BE MEDICALLY STABLE TO DC HOME TOMORROW. NURSE INDICATED THAT ID ANTICIPATES PT BEING ABLE TO TRANSITION TO ORALS UPON DC. ORDER COMPLETED AND FAXED TO [facility] [facility] F: P: FOR [employer] HOWARD CONTINUOUS CLUCOSE MONITOR SYSTEM THEY ARE A [employer] COMPANY PT IS AWARE THEY THEY WILL CONTACT HIM UPON DC RELATED TO ORDER. CM TO FOLLOW INDICATED WITH DC PLANNING.
[2020-05-04 16:00] VITALS: BP 168/97
--- NOTE | 2020-05-04 19:02 | NUR ---
PT A&OX4, VSS, DENIES PAIN. DRESSING CHANGED TODAY, INFECTIOUS DISEASE DOCTOR IN TO SEE PT. CARDIAC DOCTOR D/C'S HEART MONITORING. NO SIGNS OF DISTRESS WILL CONTINUE TO MONITOR.
[2020-05-04 19:28] VITALS: BP 150/83
[2020-05-05] VITALS (7 sets, daily range): BP systolic 145–186; BP diastolic 74–117
--- NOTE | 2020-05-05 03:42 | NUR ---
ASSUMED PT CARE AROUND 2039. AXOX4. CALLS FOR HELP. AROUND 199, PT CALLED OUT SAID PT DOES NOT FEEL WELL. FSBS 114. ELEVATED BP NOTED. 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 NO S/S ACUTE DISTRESS NOTED OR REPORTED AT THIS TIME. WILL CONT TO MONITOR FOR ANY CHANGES IN CONDITION.
[2020-05-05 05:55] LABS: HEMOGLOBIN 13.6 gm/dL (14.0-18.0); MCHC 33.2 g/dL (28.0-37.0); MCV 87.2 fL (80.0-100.0); RBC 4.7 mil/uL (4.50-6.00); RDW 14.8 % (10.5-14.5); WBC 8.3 thou/uL (4.0-11.0)
[2020-05-05 06:35] LABS: CALCIUM 9.1 mg/dL (8.5-10.1); CREATININE 1.2 mg/dL (0.7-1.3); POTASSIUM 3.1 mmol/L (3.5-5.1)
[2020-05-05] MEDS ORDERED: GLUCOPHAGE1000 MG PO (10:31)
[2020-05-05] MEDS ORDERED: SPIRONOLACTONE100 M1 PO (10:32)
[2020-05-05] MEDS ORDERED: HYDROCODON-ACE1 EAC7 PO (10:32)
[2020-05-05] MEDS ORDERED: ANCEF 1GM1 GM/50 M1 IVPB (10:36)
--- NOTE | 2020-05-05 12:10 | NUR ---
CARE TEAM INDICATED THAT PT IS MEDICALLY STABLE TO DC HOME THIS DAY. PT IS TO HAVE IV CEFAZOLIN 1G IV Q8HRS UPON DC. CM SPOKE WITH PT AND HE IS AWARE AND AGREEABLE. HE INDICATED NO PREFERENCE FOR HOME INFUSION PROVIDER OR PROVIDER. REFERRALS SENT TO [facility] AND [facility]. PT OWES $14.42 PER WEEK FOR DRUG AND $30 PER DAY FOR SUPPLIES. ORDERED FOR [address] [facility] AT $224.42. CM NOTIFIED PT AND HER IS AWARE AND AGREEABLE. PT HD BEEN GETTING DRUG AT 2A, 6P, AND 10P. CM COMPLETED SIGNITURE AMANDA ON PT'S BEHALF FOR $500.00 COVERAGE TOWARD HOME INFUSION SERVICES. KENZIE ASHBY LIAISON TO DO BEDSIDE TEACH THIS AFTERNOON. [facility] CAN ACCEPT PT FOR SERVICES UPON DC. [facility]. PT'S FAMILY TO PROVIDE TRANSPORT HOME. AWAITING PT'S MIDLINE TO BE PLACED. CM ORDERED PT A FREESTYLE HOWARD CONTINUOUS GLUCOSE METER THROUGH [facility] . CM CALLED AND CONFIRMED THEY HAD RECEIVED ORDER AND THEY INDICATED THAT PT QUALIFIES AND THAT THEY WOULD FOLLOW UP WITH HIM RELATED TO BILLING AND DELIVERY AFTER DISCHARGE. CM NOTIFIED PT AND PROVIDED HIM WITH THEIR CONTACT NUMBER. NO OTHER CM INTERVENTION INDICATED. CASE CLOSED.
--- NOTE | 2020-05-05 16:17 | NUR ---
Received awake on bed. Due medications given as prescribed, able to swallow meds w/o difficulty. On room air. Vital signs stable. On MS, not on telemetry; no complaints of chest pain, crushing sensation and heaviness; with HX of Afib. On carb controlled diet- tolerating well, no nausea, no vomiting and no abdominal pain noted. On blood sugar monitoring, taken and recorded accordingly; with sliding scale insulin ordered- given as prescribed. Continent of bowel and bladder- able to go to the toilet independently. Possible discharge today. With SL at L wrist- intact and flushing well; on IV antibiotics. To continue monitoring patient. Pt seen and examined by Dr Arroyo, discharge orders made- CM informed; pt to go home with home health- referrals sent. Discharge instructions, follow up schedule given and instructed; Contact number of infusion nurse and home health agency given to patient. Discharge photo taken, dressing changed- photo attached to chart. Pt seen and examined by IV nurse, consent signed for midline insertion; midline inserted at Left upper arm; antibiotic infusion health teaching done at bedside by infusion nurse. No complaints of pain made the whole shift. Pt fetched by his sister; discharged out of the unit via wheelchair with his personal belongings. Discharged patient.
== END 2020-05-05 15:30 | disposition home health service (06) | DRG 872 ==
LOC: ER 07:56 → EROBS 09:33 → 4W 09:33
PROVIDERS: Emergency Medicine; Internal Medicine; ADMIT Hospitalist; ATTEND Hospitalist
PROC: 05HF33Z Insertion of Infusion Device into Left Cephalic Vein, Percutaneous Approach (ICD-10-PCS; principal; 2020-05-05)
DX: A41.9 Sepsis, unspecified organism (principal); L03.113 Cellulitis of right upper limb; D68.59 Other primary thrombophilia; I48.20 Chronic atrial fibrillation, unspecified; I10 Essential (primary) hypertension; M10.9 Gout, unspecified; E11.42 Type 2 diabetes mellitus with diabetic polyneuropathy; E78.5 Hyperlipidemia, unspecified; E11.51 Type 2 diabetes mellitus with diabetic peripheral angiopathy without gangrene; Z60.2 Problems related to living alone; S61.206A Unspecified open wound of right little finger without damage to nail, initial encounter; G47.00 Insomnia, unspecified; B95.8 Unspecified staphylococcus as the cause of diseases classified elsewhere; B95.61 Methicillin susceptible Staphylococcus aureus infection as the cause of diseases classified elsewhere; B95.4 Other streptococcus as the cause of diseases classified elsewhere; E87.6 Hypokalemia; Z80.0 Family history of malignant neoplasm of digestive organs; Z87.891 Personal history of nicotine dependence; Z79.899 Other long term (current) drug therapy; X58.XXXA Exposure to other specified factors, initial encounter; Y93.89 Activity, other specified; Y92.89 Other specified places as the place of occurrence of the external cause; Y99.8 Other external cause status
CPT/HCPCS: 10040; 10045; 27000

== ENCOUNTER → 2020-06-07 | Outpatient (CLI) | payer OTHER ==
[~2020-06-07] MED LIST changes: +ANCEF 1GM1 GM/50 M1 IVPB; +BENICAR40 MG PO; +CARDIZEM CD120 MG PO; +HYDROCODON-ACE1 EAC7 PO; +K-DUR 20 MEQ T20 MEQ PO; +POTASSIUM600 MG PO; +SPIRONOLACTONE100 M1 PO; +TRIAMTERENE/HCT1 CA1 PO; +TRULICITY0.75 MG/0. SUBQ; +XARELTO20 MG PO
== END ==
LOC: SJCVC 13:19 → SJCVCINTER 13:19
PROVIDERS: ATTEND Internal Medicine
DX: R94.31 Abnormal electrocardiogram [ECG] [EKG] (principal); I45.10 Unspecified right bundle-branch block; I48.91 Unspecified atrial fibrillation; I10 Essential (primary) hypertension; E78.5 Hyperlipidemia, unspecified; I73.9 Peripheral vascular disease, unspecified; E11.9 Type 2 diabetes mellitus without complications; I45.2 Bifascicular block; Z79.899 Other long term (current) drug therapy; Z87.891 Personal history of nicotine dependence

== ENCOUNTER → 2020-12-05 | Outpatient (CLI) | payer OTHER | LOC: SJCVC 14:23 | PROVIDERS: ATTEND Internal Medicine | DX: R94.31 Abnormal electrocardiogram [ECG] [EKG] (principal); I45.10 Unspecified right bundle-branch block; I48.91 Unspecified atrial fibrillation; I10 Essential (primary) hypertension; E78.5 Hyperlipidemia, unspecified; I73.9 Peripheral vascular disease, unspecified; I45.2 Bifascicular block; E11.9 Type 2 diabetes mellitus without complications; D64.9 Anemia, unspecified; G47.33 Obstructive sleep apnea (adult) (pediatric); K56.609 Unspecified intestinal obstruction, unspecified as to partial versus complete obstruction; C95.90 Leukemia, unspecified not having achieved remission; Z87.891 Personal history of nicotine dependence; Z79.4 Long term (current) use of insulin; Z79.899 Other long term (current) drug therapy ==

== ENCOUNTER 2021-02-06 11:28 | Emergency (ER) | payer OTHER ==
[~2021-02-06] VITALS: Ht 190.5 cm; Wt 114.8 kg
[2021-02-06 11:33] VITALS: BP 135/80
== END 2021-02-06 12:11 | disposition home or self-care (01) ==
LOC: ER 11:28
DX: R05 Cough (principal); E11.9 Type 2 diabetes mellitus without complications; Z79.84 Long term (current) use of oral hypoglycemic drugs; Z79.891 Long term (current) use of opiate analgesic; Z20.822 Contact with and (suspected) exposure to COVID-19; Z87.891 Personal history of nicotine dependence; Z79.899 Other long term (current) drug therapy; Z85.51 Personal history of malignant neoplasm of bladder

== ENCOUNTER 2021-03-21 14:46 | Inpatient (IN) | payer OTHER ==
[~2021-03-21] VITALS: Ht 190.5 cm; Wt 111.6 kg
[2021-03-21 14:53] VITALS: BP 128/86
[2021-03-21 15:57] LABS: ABSOLUTE NEUTROPHILS 11.1 thou/uL (1.4-8.2); BASOPHILS 0.5 % (0.0-2.0); EOSINOPHILS 0.5 % (0.0-3.0); HEMATOCRIT 38.1 % (42.0-52.0); HEMOGLOBIN 13.1 gm/dL (14.0-18.0); LYMPHOCYTES 9.7 % (24.0-44.0); MCH 31.1 pg (26.0-34.0); MCHC 34.3 g/dL (28.0-37.0); MCV 90.4 fL (80.0-100.0); MONOCYTES 7.7 % (1.0-8.0); PLATELET COUNT 231 thou/uL (150-400); POLYS 81.6 % (36.0-66.0); RBC 4.22 mil/uL (4.50-6.00); RDW 14.2 % (10.5-14.5); WBC 13.6 thou/uL (4.0-11.0)
[2021-03-21 16:01] LABS: CALCIUM 8.5 mg/dL (8.5-10.1); CREATININE 1.8 mg/dL (0.7-1.3); POTASSIUM 4.6 mmol/L (3.5-5.1)
[2021-03-21 16:08] LABS: TOTAL BILIRUBIN 0.5 mg/dL (0.2-1.0); TOTAL PROTEIN 6.5 g/dL (6.4-8.2)
[2021-03-21 19:22] LABS: MAGNESIUM 1.4 mg/dL (1.8-2.4); TROPONIN-I <0.06 ng/mL (<0.06)
[2021-03-21] MEDS ORDERED: PRADAXA150 MG PO (19:58)
[2021-03-21 21:21] VITALS: BP 130/78
[2021-03-21] MEDS ORDERED: LEVEMIR100 UNIT/2 SUBQ (22:04)
[2021-03-22 04:46] LABS: HEMATOCRIT 37.8 % (42.0-52.0); HEMOGLOBIN 12.8 gm/dL (14.0-18.0); MCH 31.2 pg (26.0-34.0); MCV 91.8 fL (80.0-100.0); RBC 4.12 mil/uL (4.50-6.00); RDW 13.5 % (10.5-14.5); WBC 9.5 thou/uL (4.0-11.0)
[2021-03-22 05:43] LABS: CALCIUM 8.1 mg/dL (8.5-10.1); CREATININE 1.5 mg/dL (0.7-1.3); MAGNESIUM 2.5 mg/dL (1.8-2.4); POTASSIUM 4.8 mmol/L (3.5-5.1)
[2021-03-22 06:01] LABS: CHOLESTEROL 64 mg/dL (<200); HDL CHOLESTEROL 26 mg/dL (>40); LDL CHOLESTEROL 17 mg/dL (<100); TC:HDL 2.5 Ratio (Not establshd); TRIGLYCERIDE 106 mg/dL (<150); VLDL 21 mg/dL (<40)
[2021-03-22 06:03] LABS: SERUM ASSESSMENT Clear
[2021-03-22 06:54] VITALS: BP 122/71
--- NOTE | 2021-03-22 07:11 | EKG ---
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
[2021-03-22 07:30] VITALS: BP 122/71
--- NOTE | 2021-03-22 16:29 | NUR ---
Cm role introduced to the pt at bedside. He is a&ox 4 and lives indep. His truck is in the parking lot. He has two roommates. His pcp is Dr. Gregory Pascual and he has seen him a few months ago. He denies any dc needs or concerns. He is pending a cdiff test but wanting to adv his diet from liquids to solids. Nursing notified. His son is his emergency contact if needed. Will follow along should dc need arise.
[2021-03-22 17:02] VITALS: BP 126/80
[2021-03-22 20:09] VITALS: BP 125/75
--- NOTE | 2021-03-22 20:15 | NUR ---
ASSUMED CARE OF PATIENT AT 0700. PT A&OX4, FORGETFUL AT TIMES. PT. ON CONTACT PRECAUTIONS TO RULE OUT C-DIFF. PT TOLERATED CLEAR LIQUID DIET FOR BREAKFAST, SNACK AND LUNCH WITH BROTH THROUGHOUT AFTERNOON. PT THEN REQUESTED TO EAT REGU;AR DIET, ORDER OBTAINED. PT DENIES N/V AT THIS TIME. WILL CONTINUE TO MONITOR.
[2021-03-23 00:06] LABS: GLYCOHEMOGLOBIN (HGB A1C) 10.6 % (4.8-5.6)
[2021-03-23 02:28] LABS: HEMATOCRIT 34.1 % (42.0-52.0); HEMOGLOBIN 11.5 gm/dL (14.0-18.0); MCH 30.9 pg (26.0-34.0); MCHC 33.8 g/dL (28.0-37.0); MCV 91.5 fL (80.0-100.0); RBC 3.73 mil/uL (4.50-6.00); RDW 14.4 % (10.5-14.5); WBC 7.9 thou/uL (4.0-11.0)
[2021-03-23 03:44] LABS: CREATININE 1.4 mg/dL (0.7-1.3); POTASSIUM 4.9 mmol/L (3.5-5.1)
--- NOTE | 2021-03-23 04:40 | NUR ---
Assumed pt care at 1900. A/OX4,pleasant. VSS. Up with SBA to bathroom. Continent of B&B, had a soft formed BM,specimen sent to lab. Denies pain,N/V on assessment. IVF infusing w/o problems. Resting quietly at this time w/o distress will continue to monitor pt.
[2021-03-23 11:05] VITALS: BP 126/78
--- NOTE | 2021-03-23 12:01 | NUR ---
CARE TEAM INDICATED THAT PT IS PROGRESSING TOWARD GOAL OF DC. ANTICIPATED DC TOMORROW. NO DC NEEDS ANTICIPATED. CASE CLOSED.
--- NOTE | 2021-03-23 12:17 | NUR ---
Assumed pt care this am vs stable, no signs of nausea, vomiting or lbm noted. Diet and medications are tolerated well.
[2021-03-23 18:34] VITALS: BP 147/83
[2021-03-23 19:32] VITALS: BP 135/69
[2021-03-23 19:48] VITALS: BP 138/72
--- NOTE | 2021-03-24 03:08 | NUR ---
ASSUMED PT CARE AT 1930. PT IS ALERT AND ORIENTED X4 . PT IS CALM AND COOPERATIVE. PT DID NOT C/O PAIN OR NAUSEA. PT IS UP AD JUSTINA TO THE BR. PT'S IV CAME OUT WHILE IN THE BR SO A NEW ONE WAS PLACED. PT IS EAGER TO GO BACK HOME. VS ARE WITHIN NORMAL RANGE AND MEDS WERE GIVEN PER [facility]AR ORDERS. PT IS TOLERATING RA. PT DID NOT EXPRESS ANY CONCERNS AND NO VISIBLE SIGN OF DISTRESS WAS NOTED. FALL PRECAUTIONS IN PLACE. WILL CONTINUE TO MONITOR.
[2021-03-24 09:12] VITALS: BP 137/90
[2021-03-24 10:47] LABS: CALCIUM 8.2 mg/dL (8.5-10.1); CREATININE 1.2 mg/dL (0.7-1.3)
[2021-03-24 11:21] VITALS: BP 137/90
--- NOTE | 2021-03-24 13:01 | NUR ---
Assumed pt care this am, vs stable. No bm was noted since last night. VS stable, diet and medications are tolerated well. Pt is independent of adl's and steady in his gait. POC followed with no signs or verbalizations of distress noted. DC instructions given to the pt. IV removed, pt is driving himself home after lunch.
[2021-04-10] MEDS ORDERED: XARELTO1 EACH PO (14:52)
[2021-04-11] MEDS ORDERED: LEVEMIR100 UNIT/2 SUBQ (10:29)
[2021-04-12] MEDS ORDERED: DEXAMETHASONE 44 M1 PO (11:45)
== END 2021-03-24 14:00 | disposition home or self-care (01) | DRG 682 ==
LOC: ER 14:46 → EROBS 20:35 → 4W 20:35 → EROBS 20:36 → 4W 21:22
PROVIDERS: Emergency Medicine; Nurse Practitioner; Nurse Practitioner Family; ADMIT Hospitalist; ATTEND Hospitalist
DX: N17.0 Acute kidney failure with tubular necrosis (principal); R65.11 Systemic inflammatory response syndrome (SIRS) of non-infectious origin with acute organ dysfunction; I10 Essential (primary) hypertension; E78.5 Hyperlipidemia, unspecified; E11.9 Type 2 diabetes mellitus without complications; E86.0 Dehydration; E83.42 Hypomagnesemia; I48.91 Unspecified atrial fibrillation; R53.81 Other malaise; Z60.2 Problems related to living alone; E53.8 Deficiency of other specified B group vitamins; Z85.51 Personal history of malignant neoplasm of bladder; Z87.891 Personal history of nicotine dependence; Z80.0 Family history of malignant neoplasm of digestive organs; Z20.822 Contact with and (suspected) exposure to COVID-19
CPT/HCPCS: 10040

== ENCOUNTER 2021-04-06 20:00 | Emergency (ER) | payer OTHER ==
[~2021-04-06] VITALS: Ht 190.5 cm; Wt 114.8 kg
[~2021-04-06 20:00] MED LIST changes: +LEVEMIR100 UNIT/2 SUBQ; +PRADAXA150 MG PO
[2021-04-06 21:17] LABS: ABSOLUTE NEUTROPHILS 5.3 thou/uL (1.4-8.2); BASOPHILS 0.5 % (0.0-2.0); HEMATOCRIT 35.8 % (42.0-52.0); HEMOGLOBIN 11.9 gm/dL (14.0-18.0); LYMPHOCYTES 8.8 % (24.0-44.0); MCH 29.9 pg (26.0-34.0); MCHC 33.2 g/dL (28.0-37.0); MONOCYTES 7.7 % (1.0-8.0); PLATELET COUNT 162 thou/uL (150-400); RBC 3.97 mil/uL (4.50-6.00); RDW 14.2 % (10.5-14.5); WBC 6.4 thou/uL (4.0-11.0)
[2021-04-06 21:25] LABS: CALCIUM 7.3 mg/dL (8.5-10.1); CREATININE 1.4 mg/dL (0.7-1.3); POTASSIUM 4.2 mmol/L (3.5-5.1)
[2021-04-06 21:31] LABS: ALBUMIN 2.5 g/dL (3.4-5.0); TOTAL BILIRUBIN 0.4 mg/dL (0.2-1.0); TOTAL PROTEIN 5.4 g/dL (6.4-8.2)
[2021-04-06] MEDS ORDERED: ZOFRAN ODT4 MG PO (22:03)
[2021-04-06 22:52] VITALS: BP 119/77
--- NOTE | 2021-04-07 07:26 | EKG ---
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
[2021-04-10] MEDS ORDERED: XARELTO1 EACH PO (14:52)
[2021-04-11] MEDS ORDERED: LEVEMIR100 UNIT/2 SUBQ (10:29)
== END 2021-04-06 22:54 | disposition home or self-care (01) ==
LOC: ER 20:00
PROVIDERS: Emergency Medicine
DX: U07.1 COVID-19 (principal); R19.7 Diarrhea, unspecified; I10 Essential (primary) hypertension; E78.5 Hyperlipidemia, unspecified; I48.91 Unspecified atrial fibrillation; E11.9 Type 2 diabetes mellitus without complications; Z79.4 Long term (current) use of insulin; Z79.899 Other long term (current) drug therapy

== ENCOUNTER → 2021-06-12 | Outpatient (CLI) | payer OTHER ==
[~2021-06-12] MED LIST changes: +DEXAMETHASONE 44 M1 PO; +XARELTO1 EACH PO; +ZOFRAN ODT4 MG PO
== END | disposition home or self-care (01) ==
LOC: SJCVC 12:55
PROVIDERS: ATTEND Internal Medicine
DX: R94.31 Abnormal electrocardiogram [ECG] [EKG] (principal); I45.10 Unspecified right bundle-branch block; I48.91 Unspecified atrial fibrillation; I10 Essential (primary) hypertension; E78.5 Hyperlipidemia, unspecified; I73.9 Peripheral vascular disease, unspecified; I45.2 Bifascicular block; E11.9 Type 2 diabetes mellitus without complications; G47.33 Obstructive sleep apnea (adult) (pediatric); Z79.84 Long term (current) use of oral hypoglycemic drugs; Z79.4 Long term (current) use of insulin; Z98.890 Other specified postprocedural states; Z79.899 Other long term (current) drug therapy; Z87.891 Personal history of nicotine dependence; Z86.16 Personal history of COVID-19